=== PATIENT | male | born 1985 | race Caucasian/White ===

== ENCOUNTER 2016-09-16 17:06 | Emergency (ER) | payer SELFPAY ==
[2016-09-16 19:51] VITALS: BP 120/81
== END 2016-09-16 19:51 | disposition home or self-care (01) ==
LOC: ED 17:06
DX: J45.901 Unspecified asthma with (acute) exacerbation (principal)
CPT/HCPCS: J7512; J7613; J7644; Q0092

== ENCOUNTER 2016-10-25 04:35 | Emergency (ER) | payer OTHER ==
[2016-10-25 06:58] VITALS: BP 112/76
== END 2016-10-25 06:58 | disposition home or self-care (01) ==
LOC: ED 04:35
DX: J45.901 Unspecified asthma with (acute) exacerbation (principal); Z76.0 Encounter for issue of repeat prescription; F17.210 Nicotine dependence, cigarettes, uncomplicated
CPT/HCPCS: J7512; J7613; J7644

== ENCOUNTER 2018-04-10 22:37 | Inpatient (IN) | payer SELFPAY ==
[~2018-04-10] VITALS: Ht 167.6 cm; Wt 81.6 kg
[2018-04-10 23:21] LABS: CALCIUM 8.7 mg/dL (8.5-10.1); CARBON DIOXIDE 29.5 mmol/L (21-32); CHLORIDE SERUM 99 mmol/L (98-107); CREATININE SERUM 0.7 mg/dL (0.7-1.3); GFR1 > 60 mL/min; GLUCOSE SERUM 92 mg/dL (74-106); PLATELET COUNT 184 x10^3mcL (130-400); POTASSIUM SERUM 3.3 mmol/L (3.5-5.1); RED CELL DISTRIBUTION WIDTH 13.7 % (11.5-14.5); SODIUM SERUM 138 mmol/L (136-145)
[2018-04-10 23:31] LABS: ALBUMIN 3.6 g/dL (3.4-5.0); ALKALINE PHOSPHATASE 65 U/L (46-116); AST/SGOT 13 U/L (15-37); BILIRUBIN TOTAL 0.8 mg/dL (0.20-1.00); TOTAL PROTEIN, SERUM 7.8 g/dL (6.4-8.2)
[2018-04-10 23:41] LABS: ALT/SGPT 17 U/L (16-63)
[2018-04-10 23:42] LABS: BAND NEUTROPHIL 0 % (0-10); BASOPHIL 0 % (0-2); MONOCYTE 7 % (0-7); SEGMENTED NEUTROPHILS 77 % (37-75)
[2018-04-10 23:44] LABS: PLATELET MORPHOLOGY PLATELETS NORMAL; rbc morphology (normal/abnorm) NORMAL (NORMAL)
[2018-04-11] MEDS ORDERED: VENTOLIN H0.09 MG/A1 INH (00:22)
[2018-04-11 02:33] LABS: T3 TOTAL 1.3 ng/mL
[2018-04-11 02:40] VITALS: BP 142/88
[2018-04-11 02:57] VITALS: BP 111/65
[2018-04-11 03:10] LABS: CHOLESTEROL/HDL RATIO 2.8; MAGNESIUM 2.1 mg/dL (1.8-2.4); PHOSPHOROUS 3.2 mg/dL (2.5-4.9)
[2018-04-11 03:30] LABS: FREE T4 1.36 ng/dL (0.76-1.46); FREE THYROXINE INDEX 4.1 ug/dL (1.4-4.5); T4(THYROXINE) 11.1 ug/dL (4.7-13.3)
[2018-04-11 04:58] VITALS: BP 125/85
[2018-04-11 05:42] LABS: BASOPHIL % 0.4 % (0-2); PLATELET COUNT 163 x10^3mcL (130-400); RED CELL DISTRIBUTION WIDTH 13.5 % (11.5-14.5)
[2018-04-11 06:55] LABS: CALCIUM 8.3 mg/dL (8.5-10.1); CARBON DIOXIDE 28.8 mmol/L (21-32); CHLORIDE SERUM 102 mmol/L (98-107); CREATININE SERUM 0.8 mg/dL (0.7-1.3); GFR1 > 60 mL/min; GLUCOSE SERUM 108 mg/dL (74-106); POTASSIUM SERUM 3.7 mmol/L (3.5-5.1); SODIUM SERUM 140 mmol/L (136-145)
[2018-04-11 08:45] VITALS: BP 129/83
[2018-04-11 12:25] LABS: microscopic required? NO
[2018-04-11 12:41] LABS: urine erythrocyte NEGATIVE (NEGATIVE)
[2018-04-11 14:04] LABS: AMPHETAMINE QUAL UR POSITIVE (See below)
[2018-04-11 16:57] VITALS: BP 120/69
[2018-04-11 20:36] VITALS: BP 123/74
[2018-04-12 05:27] VITALS: BP 109/66
[2018-04-12 06:45] LABS: BASOPHIL % 0.4 % (0-2); PLATELET COUNT 175 x10^3mcL (130-400); RED CELL DISTRIBUTION WIDTH 13.8 % (11.5-14.5)
[2018-04-12 07:32] LABS: CALCIUM 8.3 mg/dL (8.5-10.1); CARBON DIOXIDE 25.6 mmol/L (21-32); CHLORIDE SERUM 108 mmol/L (98-107); CREATININE SERUM 0.7 mg/dL (0.7-1.3); GFR1 > 60 mL/min; GLUCOSE SERUM 101 mg/dL (74-106); MAGNESIUM 2.2 mg/dL (1.8-2.4); PHOSPHOROUS 3.5 mg/dL (2.5-4.9); SODIUM SERUM 141 mmol/L (136-145)
[2018-04-12 08:36] VITALS: BP 143/77
[2018-04-12] MEDS ORDERED: BACTRIM DS1 TAB PO (11:37)
[2018-04-12] MEDS ORDERED: CEPHALEXIN500 MG PO (11:39)
[2018-04-12] MEDS ORDERED: BACO TOP (11:56)
[2018-04-12] MEDS ORDERED: HIB240 TOP (11:57)
[2018-04-12 14:12] VITALS: BP 143/77
[2018-04-12] MEDS ORDERED: MOT800 PO (15:23)
[2018-04-12 15:57] VITALS: Ht 167.6 cm; Wt 81.6 kg
[2018-04-12 16:21] VITALS: BP 128/78
== END 2018-04-12 19:00 | disposition home or self-care (01) | DRG 603 ==
LOC: ED 22:37 → MU 04-11 00:12
PROVIDERS: Emergency Medicine; Family Medicine
PROC: 0X9K0ZZ Drainage of Left Hand, Open Approach (ICD-10-PCS; principal; 2018-04-12)
DX: L03.012 Cellulitis of left finger (principal); R65.10 Systemic inflammatory response syndrome (SIRS) of non-infectious origin without acute organ dysfunction; E87.2 Acidosis; L02.512 Cutaneous abscess of left hand; S60.465A Insect bite (nonvenomous) of left ring finger, initial encounter; M65.18 Other infective (teno)synovitis, other site; J45.909 Unspecified asthma, uncomplicated; W57.XXXA Bitten or stung by nonvenomous insect and other nonvenomous arthropods, initial encounter; E78.5 Hyperlipidemia, unspecified; I10 Essential (primary) hypertension; E87.6 Hypokalemia; F17.210 Nicotine dependence, cigarettes, uncomplicated; Y93.89 Activity, other specified; Y92.89 Other specified places as the place of occurrence of the external cause
CPT/HCPCS: 83880; 84439; 94150; J0295; J0690; J1885; J2001; J2405; J3010; J3370; J3490; J7030; J7620; Q0092